=== PATIENT | female | born 1955 | race Caucasian/White ===

== ENCOUNTER → 2016-11-19 | Outpatient (CLI) | payer OTHER ==
[~2016-11-19] MED LIST: CETI10TA99 PO; CHOL100010 PO; ESCI1TAB18 PO; FEXO3TAB PO; MOME50SP5 NAE; MOME6000 NAE; MUCINEX COUGH PO; MULT-506 PO; OMEG10007 PO; SPIR50TA2 PO
== END | disposition home or self-care (01) ==
LOC: C.PAPS 08:03
PROVIDERS: ATTEND Obstetrics & Gynecology
DX: Z12.4 Encounter for screening for malignant neoplasm of cervix (principal)

== ENCOUNTER → 2017-05-30 | Outpatient (CLI) | payer OTHER ==
[~2017-05-30] MED LIST changes: -CETI10TA99 PO; -CHOL100010 PO; -FEXO3TAB PO; -MOME50SP5 NAE; -OMEG10007 PO; -SPIR50TA2 PO
[2017-05-30 13:35] LABS: CHOLESTEROL/HDL RATIO 4.1; THYROID STIMULATING HORMONE 1.7 uIu/ml (0.300-4.500)
== END | disposition home or self-care (01) ==
LOC: C.LAB 11:53
PROVIDERS: ATTEND Family Medicine
DX: R53.83 Other fatigue (principal); E55.9 Vitamin D deficiency, unspecified; E78.2 Mixed hyperlipidemia

== ENCOUNTER → 2017-06-12 | Outpatient (CLI) | payer OTHER ==
--- NOTE | 2017-06-13 13:55 | MAMMOGRAPHY REPORT ---
BILATERAL DIGITAL SCREENING MAMMOGRAM TOMOSYNTHESIS WITH CAD: 06/12/2017 TECHNIQUE: Breast tomosynthesis in addition to standard 2D mammography was performed. Current study was also evaluated with a Computer Aided Detection (CAD) system. COMPARISON: Comparison is made to exams dated: 05/30/2016 mammogram, 05/19/2015 mammogram, 05/12/2014 mammogram, 05/06/2013 mammogram, 04/10/2012 mammogram - [facility], and 04/06/2009. BREAST COMPOSITION: There are scattered areas of fibroglandular density in both breasts. FINDINGS: No suspicious masses, calcifications, or areas of architectural distortion are noted in ei ther breast. There has been no significant interval change compared to prior exams. IMPRESSION: ACR BI-RADS CATEGORY 1: NEGATIVE There is no mammographic evidence of malignancy. A 1 year screening mammogram is recommended. The pa tient will receive written notification of the results. Approximately 10% of breast cancers are not detected with mammography. A negative mammographic report should not delay biopsy if a clinically suggestive mass is present. Gabriela Turner M.D. ah/:06/12/2017 15:57:21 Revenue Cycle Analyst: Mila DELEON(Alyssa)(M), [facility] letter sent: Normal 1/2 BI-RADS Code: ACR BI-RADS Category 1: Negative
== END | disposition home or self-care (01) ==
LOC: C.MAMM 15:15
PROVIDERS: ATTEND Family Medicine
DX: Z12.31 Encounter for screening mammogram for malignant neoplasm of breast (principal)

== ENCOUNTER 2017-07-31 14:26 | Emergency (ER) | payer OTHER ==
[~2017-07-31] VITALS: Ht 154.9 cm; Wt 89.4 kg
[~2017-07-31 14:26] MED LIST changes: -MULT-506 PO
[2017-07-31 14:34] VITALS: TEMP 37; Ht 154.9 cm; Wt 89.4 kg
[2017-07-31] MEDS ORDERED: MULT-506 PO (15:19)
[2017-07-31 16:54] VITALS: O2SAT 98
[2017-07-31] MEDS ORDERED: FLUT0.15 NAE (17:07)
[2017-07-31] MEDS ORDERED: GI COCKTAIL PO STA (17:10)
[2017-07-31] MEDS ORDERED: KETOROLAC TROMETHAMINE 30 MG/ML VIAL IV STA (17:10)
[2017-07-31] MEDS ORDERED: MoRPHine SULFATE 4 MG/ML 1 ML CARP\\VIAL IV STA (17:10)
[2017-07-31] MEDS ORDERED: ONDANSETRON INJ 2 MG/ML 2 ML VIAL IV STA (17:10)
[2017-07-31] MEDS ORDERED: PROAIR INH (17:12)
[2017-07-31] MEDS ORDERED: ROBITUSSIN DM PO (17:12)
[2017-07-31] MEDS ORDERED: CHOL100027 PO (17:12)
[2017-07-31] MEDS ORDERED: PRED10TA PO (17:12)
--- NOTE | 2017-07-31 17:22 | EMERGENCY ROOM VISIT NOTE ---
History Report prepared by Ahmet: Walter Pearson Under the Supervision of: Dr. Ankur Clarke M.D. First contact with patient: 16:47 Chief Complaint: CARDIAC ASSESSMENT Stated Complaint: UPPER ABD PAIN, NAUSEA, BACK PAIN Nursing Triage Summary: epigastric pain and back, nausea since 0500. seen at Urgent care and referred here. History of Present Illness The patient is a 62 year old white female with a past medical history of anxiety and IBS who presents to the ED with a cc of a resolving sharp chest pain beginning around 0500 this morning. Positive epigastric pain, back pain, nausea, shortness of breath, blood in urine. Negative vomiting, breast tenderness or swelling. She states that the nausea mostly went away in the afternoon. She adds that the pain radiated straight through to her back. The patient says that walking may have brought the pain on a bit more. She has not taken anything for the pain. The patient says that she was told she has some blood in her urine at the Urgent Care she was seen at earlier today. The patient says that she finished an antibiotic yesterday for a bad upper respiratory infection. She does not think coughing may have caused the pain. She notes no recent sick contacts or any recent long travels. She also notes no use of untreated well water or recent camping. She notes a strong family history of heart disease. Source of History: patient Onset: Around 0500 this morning Position: chest Quality: sharp, other (pain) Timing: other (resolving) Associated Symptoms: + SOB, + nausea, + abdominal pain (epigastric), + back pain, + urinary symptoms (blood in urine noted at urgent care), No vomiting Note: Negative breast tenderness or swelling. Review of Systems See HPI for pertinent positives and negatives. A total of ten systems were reviewed and were otherwise negative. Past Medical & Surgical Medical Problems: (1) Anxiety (2) IBS (irritable bowel syndrome) Family History Heart disease Social History Smoking Status: Never Smoker Marital Status: Housing Status: lives with family Occupation Status: employed Current/Historical Medications Scheduled Cholecalciferol (Vitamin D 1000 Unit), 1,000 INTER.UNIT PO DAILY Escitalopram Oxalate (Lexapro), 10 MG PO QAM Fluticasone Propionate (Nasal) (Flonase Allergy Relief), 2 SPRAYS IGOR DAILY Multivitamin (Multivitamin), 1 TAB PO DAILY Prednisone (Prednisone), 10 MG PO TAPER UD Scheduled PRN [Proair], 2 PUFF INH Q4 PRN for SOB/Wheezing [Robitussin Dm], 10-20 ML PO Q4 PRN for Cough Allergies Coded Allergies: Sulfa Drugs (Verified Allergy, Unknown, HIVES AND EXTREME ITCHING, 05/22/17 ) Codeine (Verified Adverse Reaction, Unknown, N/V, 05/22/17) Physical Exam Vital Signs Date Time Temp Pulse Resp B/P (MAP) Pulse Ox O2 Delivery O2 Flow Rate FiO2 07/31/17 19:31 77 20 114/63 93 07/31/17 18:23 75 07/31/17 18:21 76 18 108/63 97 Room Air 07/31/17 17:35 79 07/31/17 16:54 78 18 136/80 98 Room Air 07/31/17 16:54 98 Room Air 07/31/17 14:38 99 Room Air 07/31/17 14:34 37.0 81 20 156/86 95 Room Air Physical Exam GENERAL: Awake, alert, well-appearing, NAD HENT: Normocephalic, atraumatic. EYES: Normal conjunctiva. Sclera non-icteric. NECK: Supple. No nuchal rigidity. FROM. RESPIRATORY: CTAB, no rhonchi, wheezing, crackles CARDIAC: RRR, no MRG ABDOMEN: Soft, NTND, BS+ MSK: No chest wall TTP, no LE edema NEURO: GCS 15, CN 2-12 intact, moves all 4s on command SKIN: No rash or jaundice noted. Medical Decision & Procedures ER Provider Diagnostic Interpretation: X-ray: Per my interpretation, radiologist review. CHEST AND ABDOMEN 2 VIEWS HISTORY: Generalized abdominal pain. COMPARISON: Chest 03/27/2015. FINDINGS: The lungs are clear. The cardiomediastinal silhouette is within normal limits. There is no pneumoperitoneum or pneumatosis. The bowel gas pattern is unremarkable. No evidence for bowel obstruction. No renal or ureteral calculi. Multiple pelvic phleboliths. Moderate well-formed stool seen within the ascending colon. IMPRESSION: No acute cardiopulmonary process. No evidence for bowel obstruction. Electronically signed by: Skinny Calderon M.D. 07/31/2017 6:29 PM Dictated Date/Time: 07/31/2017 6:27 PM Laboratory Results 07/31/17 17:25 Red Blood Count 4.57, Mean Corpuscular Volume 94.7, Mean Corpuscular Hemoglobin 31.5, Mean Corpuscular Hemoglobin Concent 33.3, Mean Platelet Volume 11.6, Neutrophils (%) (Auto) 71.3, Lymphocytes (%) (Auto) 20.5, Monocytes (%) (Auto) 7.4, Eosinophils (%) (Auto) 0.4, Basophils (%) (Auto) 0.1, Neutrophils # (Auto) 7.06, Lymphocytes # (Auto) 2.03, Monocytes # (Auto) 0.73, Eosinophils # (Auto) 0.04, Basophils # (Auto) 0.01 07/31/17 17:25 Test 07/31/17 17:05 07/31/17 17:25 Urine Color YELLOW Urine Appearance CLEAR (CLEAR) Urine pH 7.0 (4.5-7.5) Urine Specific Lucas 1.024 (1.000-1.030) Urine Protein NEG (NEG) Urine Glucose (UA) NEG (NEG) Urine Ketones NEG (NEG) Urine Occult Blood NEG (NEG) Urine Nitrite NEG (NEG) Urine Bilirubin NEG (NEG) Urine Urobilinogen NEG (NEG) Urine Leukocyte Esterase NEG (NEG) White Blood Count 9.90 K/uL (4.8-10.8) Red Blood Count 4.57 M/uL (4.2-5.4) Hemoglobin 14.4 g/dL (12.0-16.0) Hematocrit 43.3 % (37-47) Mean Corpuscular Volume 94.7 fL (80-100) Mean Corpuscular Hemoglobin 31.5 pg (25-34) Mean Corpuscular Hemoglobin Concent 33.3 g/dl (32-36) Platelet Count 231 K/uL (130-400) Mean Platelet Volume 11.6 fL (7.4-10.4) Neutrophils (%) (Auto) 71.3 % Lymphocytes (%) (Auto) 20.5 % Monocytes (%) (Auto) 7.4 % Eosinophils (%) (Auto) 0.4 % Basophils (%) (Auto) 0.1 % Neutrophils # (Auto) 7.06 K/uL (1.4-6.5) Lymphocytes # (Auto) 2.03 K/uL (1.2-3.4) Monocytes # (Auto) 0.73 K/uL (0.11-0.59) Eosinophils # (Auto) 0.04 K/uL (0-0.5) Basophils # (Auto) 0.01 K/uL (0-0.2) RDW Standard Deviation 46.1 fL (36.4-46.3) RDW Coefficient of Variation 13.4 % (11.5-14.5) Immature Granulocyte % (Auto) 0.3 % Immature Granulocyte # (Auto) 0.03 K/uL (0.00-0.02) Anion Gap 9.0 mmol/L (3-11) Est Creatinine Clear Calc Drug Dose 78.0 ml/min Estimated GFR () 95.8 Estimated GFR (Non- 82.6 BUN/Creatinine Ratio 21.7 (10-20) Calcium Level 9.2 mg/dl (8.5-10.1) Total Bilirubin 0.7 mg/dl (0.2-1) Direct Bilirubin < 0.1 mg/dl (0-0.2) Aspartate Amino Transf (AST/SGOT) 15 U/L (15-37) Alanine Aminotransferase (ALT/SGPT) 33 U/L (12-78) Alkaline Phosphatase 100 U/L (45-117) Troponin I < 0.015 ng/ml (0-0.045) Total Protein 7.9 gm/dl (6.4-8.2) Albumin 3.8 gm/dl (3.4-5.0) Lipase 383 U/L (73-393) Laboratory results reviewed by me Medications Administered Medications (Trade) Dose Ordered Sig/Reina Route Start Time Stop Time Status Last Admin Dose Admin Ondansetron HCl (Zofran Inj) 4 mg NOW STAT IV 07/31/17 17:10 07/31/17 17:13 DC 07/31/17 17:33 4 MG Ketorolac Tromethamine (Toradol Inj) 30 mg NOW STAT IV 07/31/17 17:10 07/31/17 17:13 DC 07/31/17 17:33 30 MG Miscellaneous Medication (Gi Cocktail) 24 ml ONE STAT PO 07/31/17 17:10 07/31/17 17:13 DC 07/31/17 17:33 24 ML Al Hydroxide/Mg Hydroxide (Maalox Susp) 30 ml STK-MED ONCE .ROUTE 1/18/18 17:29 07/31/17 17:30 DC 07/31/17 17:34 30 ML Lidocaine HCl (Viscous Lidocaine 2% Soln) 20 ml STK-MED ONCE .ROUTE 07/31/17 17:30 07/31/17 17:31 DC 07/31/17 17:34 10 ML ECG Indication: chest pain Rate (beats per minute): 70 Rhythm: normal sinus Findings: other (normal intervals, normal axis, no STS changes or TWI) Change: Patient's electrocardiogram interpreted by me. ED Course 1711: The patient was evaluated in room A12B. A complete history and physical exam was performed. 1845: I reevaluated the patient and she is resting comfortably. Discussed results and discharge instructions: she verbalized understanding and agreement. The patient is ready for discharge. Medical Decision The patient is a 62 year old white female with a past medical history of anxiety and IBS who presents to the ED with a cc of resolving sharp chest pain beginning around 0500 this morning. Positive epigastric pain, back pain, nausea , shortness of breath, blood in urine. Negative vomiting. Differential diagnosis: Etiologies such as appendicitis, diverticulitis, PUD, biliary pathology, UTI, pancreatitis, obstruction, mesenteric ischemia, aortic pathology, infections, inflammatory bowel disease, renal colic, as well as others were entertained. Patient was seen and evaluated the bedside. Patient had been complaining of some sharp epigastric or lower chest pain. She did have blood work that was completed, EKG, troponin, and plain films. Patient did discuss that she had a very significant family history with regard to cardiac problems. The patient's chest pain story is not significant for exertional symptoms or shortness of breath. The patient's pain upon exam was fairly controlled and essentially resolved. The patient EKG was nonischemic. Patient's troponin was negative. Patient did initially complain that there was some radiation toward the back of her do not believe that the patient is having some sort of dissection as the patient is not diaphoretic, and in extremis, and does not have an elevated blood pressure. I believe this to be less likely as the patient is a symptomatic. I do not believe that she has mesenteric ischemia as the patient does not have any sort of abdominal anginal symptoms, no history of atrial fibrillation, the patient does not have pain on exam. I did discuss the findings with the patient. I did discuss with the patient should consider taking a baby aspirin and she should follow-up with her PCP given her family significant cardiac history. WELLS score of 0, less likely PE. The patient's heart score is less than 4 I believe that she suitable for outpatient follow-up and treatment at this time. We did discuss all findings together and the patient was agreeable to this plan of care. Patient was given strict follow-up, discharge, and return precautions. All questions were answered. Patient was deemed suitable for outpatient follow-up at this time. Patient agreed with the plan of care and was safely discharged home. The chart was completed utilizing [employer] voice recognition software. Grammatical errors, random word insertions, pronoun errors, and incomplete sentences are an occasional consequence of this system due to software limitations, ambient noise, and hardware issues. Any formal questions or concerns about the content, text, or information contained within the body of this dictation should be directly addressed to the physician for clarification. Medication Reconcilliation Current Medication List: was personally reviewed by me Blood Pressure Screening Patient's blood pressure: Normal blood pressure Impression Primary Impression: Epigastric pain Scribe Attestation The scribe's documentation has been prepared under my direction and personally reviewed by me in its entirety. I confirm that the note above accurately reflects all work, treatment, procedures, and medical decision making performed by me. Departure Information Dispostion Home / Self-Care Referrals Gissell Harrison D.O. (PCP) Patient Instructions ED Epigastric Pain , Replaced By [facility] Additional Instructions Please return to the emergency department if you have worsening or recurrent symptoms not amenable to at-home treatment. Please call for a follow-up appointment with her primary care physician. Please take your medications as prescribed. If you have other concerns and/or complaints please feel free to also call your primary care physician's office or return the ED for further evaluation, management, and treatment. Please follow-up with your primary care physician for further follow-up for your heart given your family's significant cardiac history. You may begin taking a baby aspirin. Take your medications as prescribed. If you were seen between 11pm and 7AM all radiology reads will be re-read by our in house staff. If any major discrepancies are discovered, you will be notified. You have been examined and treated today on an emergency basis only. This is not a substitute for, or an effort to provide, complete comprehensive medical care. It is impossible to recognize and treat all injuries or illnesses in a single emergency department visit. It is therefore important that you follow up closely with [facility], your PCP, and/or your specialist(s). Call as soon as possible for an appointment. Thank you for your time and consideration. I look forward to speaking with you again soon. Please don't hesitate to call us if you have any questions.
[2017-07-31] MEDS ORDERED: ALUMINUM/MAGNESIUM SUSP 30 ML UDC ONE (17:29)
[2017-07-31] MEDS ORDERED: LIDOCAINE HCL 2% VISC SOLN 20 ML UDC ONE (17:30)
[2017-07-31 18:02] LABS: BLOOD UREA NITROGEN 17 mg/dl (7-18); CREATININE 0.78 mg/dl (0.60-1.20); GLUCOSE 111 mg/dl (70-99)
[2017-07-31 18:03] LABS: ALBUMIN 3.8 gm/dl (3.4-5.0); ALT/SGPT 33 U/L (12-78); CALCIUM 9.2 mg/dl (8.5-10.1); CARBON DIOXIDE 27 mmol/L (21-32); LIPASE 383 U/L (73-393); POTASSIUM 4.2 mmol/L (3.5-5.1); SODIUM 139 mmol/L (136-145)
[2017-07-31 18:07] LABS: ALKALINE PHOSPHATASE 100 U/L (45-117); AST/SGOT 15 U/L (15-37); TOTAL PROTEIN 7.9 gm/dl (6.4-8.2)
[2017-07-31 18:17] LABS: BASO % 0.1 %; BASO ABS # 0.01 K/uL (0-0.2); EOS % 0.4 %; EOS ABS # 0.04 K/uL (0-0.5); HEMATOCRIT 43.3 % (37-47); HEMOGLOBIN 14.4 g/dL (12.0-16.0); IG# 0.03 K/uL (0.00-0.02); LYMPH % 20.5 %; LYMPH ABS # 2.03 K/uL (1.2-3.4); MEAN CELL VOLUME 94.7 fL (80-100); MEAN CORPUSCULAR HEMOGLOBIN 31.5 pg (25-34); MEAN CORPUSCULAR HGB CONC 33.3 g/dl (32-36); MEAN PLATELET VOLUME 11.6 fL (7.4-10.4); MONO % 7.4 %; MONO ABS # 0.73 K/uL (0.11-0.59); NEUT % 71.3 %; NEUT ABS # 7.06 K/uL (1.4-6.5); PLATELET COUNT 231 K/uL (130-400); RED CELL DISTRIBUTION WIDTH CV 13.4 % (11.5-14.5); RED CELL DISTRIBUTION WIDTH SD 46.1 fL (36.4-46.3)
--- NOTE | 2017-07-31 18:30 | DIAGNOSTIC IMAGING REPORT ---
CHEST AND ABDOMEN 2 VIEWS HISTORY: Generalized abdominal pain. COMPARISON: Chest 03/27/2015. FINDINGS: The lungs are clear. The cardiomediastinal silhouette is within normal limits. There is no pneumoperitoneum or pneumatosis. The bowel gas pattern is unremarkable. No evidence for bowel obstruction. No renal or ureteral calculi. Multiple pelvic phleboliths. Moderate well-formed stool seen within the ascending colon. IMPRESSION: No acute cardiopulmonary process. No evidence for bowel obstruction. Electronically signed by: Skinny Calderon M.D. 07/31/2017 6:29 PM Dictated Date/Time: 07/31/2017 6:27 PM
[2017-07-31 19:31] VITALS: BP 114/63; PULSE 77; O2SAT 93
== END 2017-07-31 19:32 | disposition home or self-care (01) ==
LOC: C.EDB 14:27 → C.EDA 19:32
DX: R10.13 Epigastric pain (principal); F41.9 Anxiety disorder, unspecified; K58.9 Irritable bowel syndrome, unspecified; Z79.899 Other long term (current) drug therapy